=== PATIENT | female | born 1985 | race Two or more races ===

== ENCOUNTER 2019-01-24 13:11 | Emergency (ER) | payer BC, MEDICAID, OTHER ==
[~2019-01-24] VITALS: Ht 160 cm; Wt 54.4 kg
[2019-01-24 15:48] VITALS: BP 145/99
== END 2019-01-24 15:47 | disposition home or self-care (01) ==
LOC: ER 13:11
DX: R22.32 Localized swelling, mass and lump, left upper limb (principal); M79.645 Pain in left finger(s); F41.9 Anxiety disorder, unspecified; F32.9 Major depressive disorder, single episode, unspecified; W22.8XXA Striking against or struck by other objects, initial encounter; Y93.89 Activity, other specified; Y92.89 Other specified places as the place of occurrence of the external cause; Y99.8 Other external cause status
CPT/HCPCS: 73120

== ENCOUNTER 2020-11-08 00:06 | Emergency (ER) | payer MEDICAID ==
[~2020-11-08] VITALS: Ht 160 cm; Wt 61.2 kg
[2020-11-08] MEDS ORDERED: SODIUM CHLORIDE 0.9% 500 ML IV STA (00:51)
[2020-11-08 01:28] LABS: Basophils # (auto) 0 10 ^3/uL (0-0.2); Basophils % (auto) 0.2 % (0.0-2.0); Eosinophils # (auto) 0.2 10 ^3/uL (0-0.8); Hematocrit 39.3 % (36.0-46.0); Hemoglobin 14.3 g/dL (12.2-16.2); Lymphocytes # (auto) 1.9 10 ^3/uL (0.4-5.4); Lymphocytes % (auto) 22.3 % (10.0-50.0); Mean Corpuscular Hemoglobin 32.9 pg (28.0-32.0); Mean Corpuscular Hgb Conc. 36.5 g/dL (32.0-36.0); Mean Corpuscular Volume 90.2 fL (80.0-100.0); Monocytes # (auto) 0.7 10 ^3/uL (0-1.3); Neutrophils # (auto) 5.8 10 ^3/uL (1.6-8.6); Neutrophils % (auto) 67.5 % (37.0-80.0); Nucleated Red Blood Cells % 0.2 %; Platelet Count (auto) 271 10^3/uL (140-450); Red Blood Cells 4.36 10^6/uL (4.0-5.20); Red Cell Distribution Width 13.7 % (11.8-14.3); White Blood Cell 8.6 10^3/uL (4.4-10.8)
[2020-11-08 01:42] LABS: Albumin 3.7 g/dL (3.4-5.0); Anion Gap 7 (5-15); Blood Urea Nitrogen 15 mg/dL (7-18); Calcium 8.7 mg/dL (8.5-10.1); Carbon Dioxide 25 mmol/L (21-32); Chloride 109 mmol/L (98-107); Glucose 90 mg/dL (74-106); Sodium 141 mmol/L (136-145)
[2020-11-08 01:44] LABS: Alanine Aminotransferase 42 U/L (13-56); BUN/Creatinine Ratio 23.1; GFR African American 134 mL/min; GFR Non-African American 111 mL/min
[2020-11-08 01:49] LABS: Alkaline Phosphatase 89 U/L (45-117); Aspartate Aminotransferase 33 U/L (15-37); Bilirubin, Total 0.4 mg/dL (0.2-1.0); Total Protein 7.3 g/dL (6.4-8.2)
[2020-11-08 04:47] VITALS: BP 96/58
== END 2020-11-08 04:50 | disposition home or self-care (01) ==
LOC: EDBD 00:06 → ER 00:09
DX: I47.1 Supraventricular tachycardia (principal); F41.9 Anxiety disorder, unspecified; F32.9 Major depressive disorder, single episode, unspecified
CPT/HCPCS: 36415; 71045; 80053; 83735; 84484; 85025; 93005; 96360; 96361; 99285; J7040